=== PATIENT | female | born 1980 ===

== ENCOUNTER 2020-05-23 07:47 | Inpatient (IN) | payer OTHER, SELFPAY ==
[2020-05-23] MEDS ORDERED: TERBUTALINE 1 MG/1 ML INJ SUB-Q PRN (09:21)
[2020-05-23] MEDS ORDERED: AMPICILLIN/NS 2 GM/100 ML 2 GM/100 ML BAG IV ONE (09:21)
[2020-05-23] MEDS ORDERED: LIDOCAINE (2%) 20 MG/1 ML VIAL 20 ML MDV INFILTRATI NR (09:21)
[2020-05-23 09:42] LABS: Hemoglobin 13.2 gm/dl (10.1-14.3); Mean Corpuscular HGB Conc 35 % (30-34); Mean Corpuscular Volume 90 fl (79-97); Platelet Count 187 K/mm3 (140-440); Red Cell Distribution Width 17.8 % (13.2-15.2)
[2020-05-23] MEDS ORDERED: ePHEDrine SULFATE 50 MG/1 ML INJ IV PRN (10:00)
[2020-05-23] MEDS: fentaNYL 100 MCG/2 ML INJ IV PRN ×3 (10:00→12:02)
[2020-05-23] MEDS ORDERED: ACETAMINOPHEN 325 MG TAB PO PRN (10:00)
[2020-05-23] MEDS ORDERED: OXYTOCIN 20 UNIT/1000ML DRIP 20 UNITS/1,000 ML BAG IV SCH (10:00)
[2020-05-23] MEDS ORDERED: NalbUPHINE 10 MG/1 ML INJ IV PRN (10:00)
[2020-05-23] MEDS ORDERED: BUTORPHANOL 2 MG/1 ML INJ IV PRN ×2 (10:00)
[2020-05-23] MEDS ORDERED: OXYTOCIN DRIP 30 UNITS/500 ML BAG IV SCH (10:00)
[2020-05-23] MEDS ORDERED: LACTATED RINGERS 1,000 ML IV SCH (10:00)
[2020-05-23] MEDS ORDERED: ONDANSETRON 4 MG/2 ML INJ IV PRN (10:00)
--- NOTE | 2020-05-23 10:00 | History and Physical Report ---
History of Present Illness Date of examination: 05/23/20 Date of admission: 05/23/20 09:31 Chief complaint: Active labor History of present illness: 39yo, at unknown gestation, initiated care with [facility] per pt. Limited PN records are available. She presents to [facility] with regular painful ctxs. She reports +FM. Denies VB or LOF. Labs: O+, antibody negative; HIV negative; rubella immune; RPR negative; HBsAg negative; PAP negative; GC/Chlamydia negative; AFP negative; 1hr - gtt - 175; 3hr gtt - 83, 169, 195, 102; GBS unknown. Past History Past Medical History: no pertinent history Past Surgical History: other (Removed left fallopian tube; left leg surgery - 2012) Social history: , lives with family, full code. denies: smoking, alcohol abuse, prescription drug abuse, IV drug use - Obstetrical History : 5 Para: 1 Hx # Term Pregnancies: 1 Number of Pregnancies: 0 Spontaneous Abortions: 3 Induced : 0 Number of Living Children: 1 #1 Gender: Male year: 2,[birth year] Birthweight: 3.629 kg Method of Delivery: Vaginal Complications: none Medications and Allergies Allergies Allergy/AdvReac Type Severity Reaction Status Date / Time No Known Allergies Allergy Unverified 05/23/20 09:20 Active Meds: Active Medications Acetaminophen (Tylenol) 650 mg PO Q4H PRN PRN Reason: Pain, Mild (1-3) Butorphanol Tartrate (Stadol) 2 mg IV Q2H PRN PRN Reason: Pain , Severe (7-10) Ephedrine Sulfate (Ephedrine Sulfate) 10 mg IV Q2M PRN PRN Reason: Hypotension Fentanyl (Sublimaze) 100 mcg IV Q2H PRN PRN Reason: Pain,Severe (7-10) LABOR PAIN Oxytocin/Sodium Chloride (Pitocin/Ns 30 Unit/500ml) 30 units in 500 mls @ 2 mls/hr IV TITR THOMAS; Protocol Lactated Ringer's (Lactated Ringers) 1,000 mls @ 125 mls/hr IV DIRECT THOMAS Oxytocin/Sodium Chloride (Pitocin/Ns 20 Unit/1000ml Drip) 20 units in 1,000 mls @ 125 mls/hr IV DIRECT THOMAS Ampicillin Sodium (Ampicillin/Ns 1 Gm/50 Ml) 1 gm in 50 mls @ 100 mls/hr IV Q4HR [facility]; Protocol Ampicillin Sodium (Ampicillin/Ns 2 Gm/100 Ml) 2 gm in 100 mls @ 100 mls/hr IV ONCE ONE; Protocol Stop: 05/23/20 10:20 Lidocaine (Xylocaine 2%) 20 ml INFILTRATI ONCE NR Stop: 05/23/20 16:00 Mineral Oil (Mineral Oil) 30 ml PO QHS PRN PRN Reason: Constipation Nalbuphine HCl (Nalbuphine) 10 mg IV Q2H PRN PRN Reason: Pain, Moderate (4-6) Ondansetron HCl (Zofran) 4 mg IV Q8H PRN PRN Reason: Nausea And Vomiting Terbutaline Sulfate (Brethine) 0.25 mg SUB-Q ONCE PRN PRN Reason: Hyperstimulation/Hypertonicity Stop: 05/23/20 23:00 Review of Systems All systems: negative Genitourinary: contractions - Vital Signs Vital signs: Vital Signs Pulse BP 88 120/80 05/23/20 08:15 05/23/20 08:15 Temp Pulse Resp BP Pulse Ox 79 134/83 05/23/20 09:29 05/23/20 09:29 - Physical Exam Breasts: Positive: normal Cardiovascular: Regular rate Lungs: Positive: Normal air movement Abdomen: Positive: other (gravid) Uterus: Positive: enlarged Extremities: Positive: edema - Obstetrical FHR: category 1 Uterine Contraction Monitor Mode: External Cervical Dilatation: 7 Cervical Effacement Percentage: 70 station: -2 Uterine Contraction Frequency (min): 2-4 Uterine Contraction Pattern: Irregular Uterine Tone Measurement Phase: Resting Uterine Contraction Intensity: Moderate Results All other labs normal. Assessment and Plan - Patient Problems (1) Active labor Current Visit: Yes Status: Acute Plan to address problem: Admit to L & D Pain meds as desired per order Anticipate (2) AMA (advanced maternal age) primigravida 35+ Current Visit: Yes Status: Acute
[2020-05-23] MEDS ORDERED: METHYLERGONOVINE MALEATE 0.2 MG/ML VIAL IM ONE ×2 (11:58→14:44)
[2020-05-23] MEDS ORDERED: miSOPROStol 200 MCG TAB ONE (11:59)
[2020-05-23] MEDS ORDERED: miSOPROStol 200 MCG TAB PR ONE (12:05)
--- NOTE | 2020-05-23 12:37 | Procedure Note ---
OB Delivery Note - Delivery Date of Delivery: 05/23/20 (1147) Surgeon: GIOVANNA VILLATORO (CNM) Estimated blood loss: other (450mls) - Vaginal Delivery presentation: vertex, compound (left hand) Delivery position: OA (TUYET) Intrapartum events: other(please specify) (cord evulsion with manual placenta extraction) Delivery induction: none Delivery augmentation: rupture of membranes (05/23/2020 @ 0600) Delivery monitor: external FHT, external uterine Route of delivery: Delivery placenta: manual (1153), uterine exploration (Empiric Abts therapy ordered) Delivery cord: 3 umbilical vessels Episiotomy: none Delivery laceration: 1st degree (perineal, repaired) Delivery repair: vicryl (3.0 - SH) Anesthesia: local Delivery comments: of viable, crying male infant placed directly on maternal abdomen. Cord double clamped, cut by FOB after cessation of pulsation. Cord thick except at insertion site into placenta, cord was thin and wrapped tight onto itself. Upon application of hemostat, cord snapped and . Placenta was then manually removed, kayla, followed by uterine manual sweep. Methergine 0.2 mg IM and Cyctotec 1000mcg rectally given. Empiric ABT therapy ordered. Placenta sent to pathology. Uterus firm @ U-2. 1st degree perineal laceration, repaired. Mother and baby safe, stable and left in care of RN. - A at 1 minute: 8 at 5 minutes: 9 Gender: Male (Weight: 3466 gms (7lbs 10.2ozs) 17.5 inches)
[2020-05-23] MEDS ORDERED: AMPICILLIN/NS 2 GM/100 ML 2 GM/100 ML BAG IV SCH ×2 (13:00→15:00)
[2020-05-23] MEDS ORDERED: AMPICILLIN/NS 1 GM/50 ML 1 GM/50 ML BAG IV SCH (13:23)
[2020-05-23] MEDS ORDERED: WITCH HAZEL/ GLYCERIN PAD TP PRN (14:00)
[2020-05-23] MEDS ORDERED: LANOLIN/ZINC/DIMETHICONE (LANSINOH) 7 GM TP PRN (14:00)
[2020-05-23] MEDS ORDERED: diphenhydrAMINE 25 MG CAP PO PRN (14:00)
[2020-05-23] MEDS ORDERED: PROMETHAZINE 25 MG TAB PO PRN (14:00)
[2020-05-23] MEDS: IBUPROFEN 600 MG TAB PO SCH (14:47)
[2020-05-23] MEDS: oxyCODONE /ACETAMINOPHEN 5-325MG TAB PO PRN ×2 (19:10→23:33)
[2020-05-23] MEDS ORDERED: MINERAL OIL 30 ML ORAL LIQD PO PRN (22:00)
[2020-05-23] MEDS ORDERED: MAGNESIUM HYDROXIDE (MOM) ORAL LIQD UDC PO PRN (22:00)
[2020-05-24 01:11] LABS: Hematocrit 34.7 % (30.3-42.9); Hemoglobin 12.1 gm/dl (10.1-14.3)
[2020-05-24] MEDS: IBUPROFEN 600 MG TAB PO SCH ×3 (04:36→19:20)
[2020-05-24] MEDS: oxyCODONE /ACETAMINOPHEN 5-325MG TAB PO PRN ×2 (06:04→14:45)
--- NOTE | 2020-05-24 11:11 | Progress Note ---
Assessment and Plan A: day 1 S/P . P: Continue current management. Anticipate discharge home tomorrow if patient continues to do well. Subjective - Subjective Date of service: 05/24/20 Principal diagnosis: day 1 S/P Patient reports: appetite normal, voiding normally, pain well controlled, flatus, ambulating normally, no dizzy ambulation, no nauseated : doing well Objective - Vital Signs Latest vital signs: Vital Signs Temp Pulse Resp BP BP Pulse Ox 05/24/20 08:50 97.9 F 75 18 89/51 95 05/24/20 00:00 98.4 F 68 18 136/75 88 05/23/20 20:43 98.2 F 79 20 107/64 97 05/23/20 16:53 97.6 F 70 18 122/73 95 05/23/20 13:37 75 117/68 97 05/23/20 13:35 98.3 F 05/23/20 12:30 93 H 97 05/23/20 12:25 92 H 96 05/23/20 12:20 102 H 95 05/23/20 12:19 97 H 94 05/23/20 12:17 88 129/64 05/23/20 12:15 83 96 05/23/20 12:14 97 H 91 05/23/20 12:10 103 H 96 05/23/20 12:05 90 97 05/23/20 12:00 94 H 98 05/23/20 11:55 86 97 05/23/20 11:50 93 H 97 05/23/20 11:45 96 H 98 05/23/20 11:40 91 H 99 05/23/20 11:35 108 H 97 05/23/20 11:30 83 98 05/23/20 11:25 92 H 97 05/23/20 11:20 94 H 96 05/23/20 11:15 94 H 97 05/23/20 11:10 82 96 Intake and Output 05/23/20 05/24/20 05/24/20 23:59 07:59 15:59 Intake Total 120 240 240 Output Total 400 Balance -280 240 240 Intake: Oral 120 240 240 Output: Urine 400 Void 400 Other: Total, Intake Amount 120 240 240 Total, Output Amount 400 # Voids Void 1 1 - Exam Cardiovascular: Present: Regular rate, No murmurs Lungs: Present: Clear to auscultation Abdomen: Present: normal appearance, soft, normal bowel sounds. Absent: distention, tenderness, guarding, rigidity Uterus: Present: normal, firm, fundal height below umbilicus. Absent: boggin ess, tenderness Extremities: Present: normal. Absent: tenderness, edema
[2020-05-25] MEDS: oxyCODONE /ACETAMINOPHEN 5-325MG TAB PO PRN ×2 (00:24→09:32)
[2020-05-25] MEDS: IBUPROFEN 600 MG TAB PO SCH ×4 (00:25→22:19)
--- NOTE | 2020-05-25 10:51 | Progress Note ---
Assessment and Plan A: day 2 S/P . Dysuria and urinary frequency. P: Urinalysis and urine culture. Subjective - Subjective Date of service: 05/25/20 Principal diagnosis: day 2 S/P Interval history: Patient reports dysuria and mild suprapubic cramping this morning. States she has frequent urge to urinate. Denies fever, chills, malaise, or flank pain. Patient reports: appetite normal, flatus, bowel movement, ambulating normally, no dizzy ambulation, no nauseated : doing well Objective - Vital Signs Latest vital signs: Vital Signs Temp Pulse Resp BP Pulse Ox 05/25/20 08:14 98.6 F 84 18 109/54 95 05/25/20 00:00 98.2 F 74 19 102/65 95 05/24/20 16:10 98 F 80 18 95/56 95 Intake and Output 05/24/20 05/25/20 05/25/20 23:59 07:59 15:59 Intake Total 240 480 240 Balance 240 480 240 Intake: Oral 240 480 240 Other: Total, Intake Amount 240 240 240 # Voids Void 1 1 - Exam Cardiovascular: Present: Regular rate, No murmurs Lungs: Present: Clear to auscultation Abdomen: Present: normal appearance, soft, normal bowel sounds. Absent: distention, tenderness, guarding, rigidity Uterus: Present: normal, firm, fundal height below umbilicus. Absent: bogginess Extremities: Present: normal. Absent: tenderness, edema
[2020-05-25 13:34] LABS: Bilirubin,Urine NEG (Negative); Blood,Urine MOD (Negative); Color,Urine Straw (Yellow); Protein,Urine <15 mg/dL mg/dL (Negative); Urobilinogen,Urine < 2.0 mg/dL (<2.0)
[2020-05-25] MEDS: AMOXICILLIN/K CLAV 500/125MG TAB PO SCH ×2 (17:31→22:21)
[2020-05-26] MEDS: IBUPROFEN 600 MG TAB PO SCH ×3 (01:48→12:05)
--- NOTE | 2020-05-26 06:32 | Event Note ---
Date: 05/26/20 Patient with lower back pain; IV had been removed prior to her complaint of urinary symptoms yesterday. She is receiving Augmentin 500 mg po BID. Urine culture is pending. Patient is afebrile.
[2020-05-26] MEDS: AMOXICILLIN/K CLAV 500/125MG TAB PO SCH (12:06)
--- NOTE | 2020-05-26 12:47 | Progress Note ---
Assessment and Plan A: PP Day #3 P: Follow Routine Orders Depo Provera 150mg IM x 1 dose prior to discharge D/C home today RTO in 6 Weeks Subjective - Subjective Date of service: 05/26/20 Principal diagnosis: day 2 S/P Patient reports: appetite normal, voiding normally, pain well controlled, flatus, bowel movement, ambulating normally Kegley: doing well Objective - Vital Signs Latest vital signs: Vital Signs Temp Pulse Resp BP BP Pulse Ox 05/26/20 07:52 98.2 F 82 18 115/69 96 05/26/20 06:21 16 05/26/20 00:56 98.0 F 78 18 125/75 98 05/25/20 22:19 16 05/25/20 16:15 98.4 F 78 18 112/68 96 Intake and Output 05/25/20 05/26/20 05/26/20 22:59 06:59 14:59 Intake Total 600 360 720 Balance 600 360 720 Intake: Oral 240 360 Intake, Free Water 360 360 360 Other: Total, Intake Amount 240 120 # Voids Void 3 1 2 - Exam Breasts: Present: normal Cardiovascular: Present: Regular rate Lungs: Present: Clear to auscultation, Normal air movement Abdomen: Present: normal appearance, soft, normal bowel sounds Uterus: Present: normal, firm, fundal height below umbilicus Extremities: Present: normal
--- NOTE | 2020-05-26 12:49 | Discharge Summary ---
Providers - Providers Date of Admission: 05/23/20 09:31 Date of discharge: 05/26/20 Attending physician: TIA LARSON Primary care physician: WIDTH STRIPPER Hospitalization Reason for admission: active labor Delivery: Episiotomy: none Laceration: 2nd degree Other procedures: none complications: other (back pain) Discharge diagnosis: IUP at term delivered Williams baby: male Condition at discharge: Good Disposition: DC-01 TO HOME OR SELFCARE Plan - Provider Discharge Summary Activity: routine, no sex for 6 weeks, no heavy lifting 4 weeks, no strenuous exercise Diet: routine Instructions: routine Additional instructions: [] Smoking cessation referral if applicable(refer to patient education folder for contact #) [] Refer to [facility] Booklet Call your doctor immediately for: * Fever > 100.5 * Heavy vaginal bleeding ( >1 pad per hour) * Severe persistent headache * Shortness of breath * Reddened, hot, painful area to leg or breast * Drainage or odor from incision. * Keep incision clean and dry at all times and follow doctor's instructions regarding bathing/showering - Follow up plan Follow up: TIA LARSON MD [Staff Physician] - 6 Weeks
[2020-05-26] MEDS ORDERED: medroxyPROGESTERone ACETATE 150 MG/ML SYRINGE IM ONE (13:00)
[2020-05-26 13:15] VITALS: BP 117/72
[2020-05-26] MEDS: oxyCODONE /ACETAMINOPHEN 5-325MG TAB PO PRN (14:00)
== END 2020-05-26 14:45 | disposition home or self-care (01) | DRG 807 ==
LOC: TRG 07:47 → APU 07:51 → LD 09:19 → TRG 09:30 → LD 09:31 → OB 14:04
PROVIDERS: ADMIT Obstetrics & Gynecology; ATTEND Obstetrics & Gynecology
PROC: 10E0XZZ Delivery of Products of Conception, External Approach (ICD-10-PCS; principal; 2020-05-23)
PROC: 0HQ9XZZ Repair Perineum Skin, External Approach (ICD-10-PCS; 2020-05-23)
PROC: 3E0P7VZ Introduction of Hormone into Female Reproductive, Via Natural or Artificial Opening (ICD-10-PCS; 2020-05-23)
DX: O32.6XX0 Maternal care for compound presentation, not applicable or unspecified (principal); Z37.0 Single live birth; O70.0 First degree perineal laceration during delivery; O09.519 Supervision of elderly primigravida, unspecified trimester; Z3A.00 Weeks of gestation of pregnancy not specified; Z20.828 Contact with and (suspected) exposure to other viral communicable diseases; O90.89 Other complications of the puerperium, not elsewhere classified; R30.0 Dysuria; R35.0 Frequency of micturition; M54.5 Low back pain
CPT/HCPCS: 36415; 81001; 85014; 85018; 85027; 86592; 86850; 86900; 86901; 87086; 88307; G0378; A6250; J0290; J1050; J2210; J2590; J3010; J7120; U0003-CS

== ENCOUNTER 2020-10-02 14:48 | Emergency (ER) | payer MEDICAID ==
[2020-10-02 14:56] VITALS: BP 108/73
[2020-10-02] MEDS ORDERED: ONDANSETRON 4 MG ODT TAB PO ONE (15:19)
[2020-10-02] MEDS ORDERED: KETOROLAC 10 MG TAB PO ONE (15:19)
[2020-10-02] MEDS ORDERED: oxyCODONE 5 MG TAB PO ONE (15:19)
[2020-10-02 15:32] LABS: HCG Qualitative,Urine Negative (Negative)
[2020-10-02 15:35] LABS: Bilirubin,Urine NEG (Negative); Blood,Urine NEG (Negative); Color,Urine Yellow (Yellow); Mucus,Urine FEW /HPF
--- NOTE | 2020-10-02 15:39 | Emergency Department Report ---
ED Female HPI - General Chief complaint: Urogenital-Female Stated complaint: LEFT SIDE PAIN Time Seen by Provider: 10/02/20 14:57 Source: patient Mode of arrival: Ambulatory Limitations: Language Barrier - History of Present Illness Initial comments: Bahamian interpretation by lauro Pack Patient is a 39-year-old female presents emergency room complaints of left flank pain that began yesterday. She has associated urinary frequency and dysuria. She denies any abdominal pain, nausea, vomiting, diarrhea, fever, abnormal vaginal discharge, blood in the urine. No past medical history. No allergies to medications. She had a vaginal delivery 4 months ago. She had a Pap smear performed by her [facility] 2 days ago. - Related Data Previous Rx's Medication Instructions Recorded Last Taken Type Ketorolac [Toradol] 10 mg PO Q6H PRN #10 tablet 10/02/20 Unknown Rx Phenazopyridine [Pyridium] 100 mg PO TID #9 tab 10/02/20 Unknown Rx Tamsulosin [Flomax] 0.4 mg PO QDAY #7 cap 10/02/20 Unknown Rx traMADoL [Ultram 50 MG tab] 50 mg PO Q6HR PRN #12 tablet 10/02/20 Unknown Rx Allergies Allergy/AdvReac Type Severity Reaction Status Date / Time No Known Allergies Allergy Verified 10/02/20 14:52 ED Review of Systems ROS: Stated complaint: LEFT SIDE PAIN Other details as noted in HPI Comment: All other systems reviewed and negative ED Past Medical Hx - Past Medical History Hx Hypertension: No Hx Congestive Heart Failure: No Hx Diabetes: No Hx Deep Vein Thrombosis: No Hx Renal Disease: No Hx Sickle Cell Disease: No Hx Seizures: No Hx Asthma: No Hx COPD: No Hx HIV: No - Social History Smoking Status: Never Smoker - Medications Home Medications: Home Medications Medication Instructions Recorded Confirmed Last Taken Type Ketorolac [Toradol] 10 mg PO Q6H PRN #10 tablet 10/02/20 Unknown Rx Phenazopyridine [Pyridium] 100 mg PO TID #9 tab 10/02/20 Unknown Rx Tamsulosin [Flomax] 0.4 mg PO QDAY #7 cap 10/02/20 Unknown Rx traMADoL [Ultram 50 MG tab] 50 mg PO Q6HR PRN #12 tablet 10/02/20 Unknown Rx ED Physical Exam - General Limitations: No Limitations General appearance: alert, in no apparent distress - Head Head exam: Present: atraumatic, normocephalic - Eye Eye exam: Present: normal appearance - ENT ENT exam: Present: mucous membranes moist - Respiratory Respiratory exam: Present: normal lung sounds bilaterally. Absent: respiratory distress, wheezes, rales, rhonchi, stridor, chest wall tenderness, accessory muscle use, decreased breath sounds, prolonged expiratory - Cardiovascular Cardiovascular Exam: Present: regular rate, normal rhythm, normal heart sounds. Absent: systolic murmur, diastolic murmur, rubs, gallop - GI/Abdominal GI/Abdominal exam: Present: soft, normal bowel sounds. Absent: distended, tenderness, guarding, rebound, rigid - Back Exam Back exam: Present: CVA tenderness (L). Absent: CVA tenderness (R) - Neurological Exam Neurological exam: Present: alert, oriented X3 - Psychiatric Psychiatric exam: Present: normal affect, normal mood - Skin Skin exam: Present: warm, dry, intact ED Course Vital Signs 10/02/20 10/02/20 14:54 15:50 Temperature 98.0 F Pulse Rate 85 Respiratory 18 18 Rate Blood Pressure 108/73 O2 Sat by Pulse 96 Oximetry ED Medical Decision Making - Lab Data Result diagrams: 10/02/20 16:10 10/02/20 16:10 - Radiology Data Radiology results: report reviewed Ordering Physician: KRYSTAL BENITEZ Date of Service: 10/02/20 Procedure(s): CT abdomen pelvis wo con Accession Number(s): [id number] cc: KRYSTAL BENITEZ CT abdomen pelvis wo con INDICATION: left flank pain. TECHNIQUE: All CT scans at this location are performed using the following dose modulation technique: Automated exposure control. CONTRAST: None. COMPARISON: None available. CT ABDOMEN: Evaluation of the parenchymal organs demonstrates a clustering of stones medially at the left kidney measuring 1.2 cm. There is overlying cortical scarring. The remaining parenchymal organs are unremarkable negative for abdominal mass, fluid or inflammation. The bowel isn't dilated or thickened. The gallbladder contains calcified stones but appears noninflamed. CT PELVIS: Negative for distal ureteral stone, pelvic fluid collection or inflammation. A fat- containing umbilical hernia is small. The appendix is normal. IMPRESSION: 1. Clustered stones within the medial left kidney with overlying scarring. These are possibly within a calyceal diverticulum. 2. Calcified gallstone. 3. Negative for obstructing ureteral stone. Signer Name: Les Polanco MD Signed: 10/02/2020 4:15 PM Workstation Name: [id number] Transcribed By: RUTHANN Dictated By: Les Polanco MD Electronically Authenticated By: Les Polanco MD Signed Date/Time: 10/02/201614 DD/ 10 TD/TT: - Medical Decision Making Bahamian interpretation by lauro Pack Patient is a 39-year-old female presents emergency room complaints of left flank pain that began yesterday. She has associated urinary frequency and dysuria. She denies any abdominal pain, nausea, vomiting, diarrhea, fever, abnormal vaginal discharge, blood in the urine. No past medical history. No allergies to medications. She had a vaginal delivery 4 months ago. She had a Pap smear performed by her [facility] [employer] 2 days ago. Vitals are normal. On exam patient has left CVA tenderness. UA is within normal limits. CT abdomen pelvis w/o contrast 1. Clustered stones within the medial left kidney with overlying scarring. These are possibly within a calyceal diverticulum. 2. Calcified gallstone. 3. Negative for obstructing ureteral stone. labs are stable. Discussed all results with patient answered questions. Patient given medications while in the ED as she did not drive and symptoms improved and she was feeling much better and ready to go home. Patient given prescription for Flomax, Pyridium, tramadol, Toradol. Advised patient to please take medication as prescribed. Increase water intake. Medication may turn your urine orange but this is normal. Do not drive or operate heavy machinery while taking severe pain medication. Follow-up with a primary care doctor. Follow-up with urologist. Return to emergency room for new or worsening symptoms. Critical care attestation.: If time is entered above; I have spent that time in minutes in the direct care of this critically ill patient, excluding procedure time. ED Disposition Clinical Impression: Left flank pain, Dysuria, Nephrolithiasis Disposition: - TO HOME OR SELFCARE Is pt being admited?: No Does the pt Need Aspirin: No Condition: Stable Instructions: Flank Pain, Adult, Kidney Stones Additional Instructions: please take medication as prescribed. Increase water intake. Medication may turn your urine orange but this is normal. Do not drive or operate heavy machinery while taking severe pain medication. Follow-up with a primary care doctor. Follow-up with urologist. Return to emergency room for new or worsening symptoms. Prescriptions: Tamsulosin [Flomax] 0.4 mg PO QDAY #7 cap Phenazopyridine [Pyridium] 100 mg PO TID #9 tab Ketorolac [Toradol] 10 mg PO Q6H PRN #10 tablet PRN Reason: Pain, Moderate (4-6) traMADoL [Ultram 50 MG tab] 50 mg PO Q6HR PRN #12 tablet PRN Reason: Pain , Severe (7-10) Referrals: APOLONIA AUSTIN MD [Staff Physician] - 2-3 Days [facility] [Provider Group] - 2-3 Days DAGOBERTO SOLARES MD [Staff Physician] - 2-3 Days Time of Disposition: 16:56 Print Language: MARSHALLESE
--- NOTE | 2020-10-02 16:20 | Cat Scan Report ---
CT abdomen pelvis wo con INDICATION: left flank pain. TECHNIQUE: All CT scans at this location are performed using the following dose modulation technique: Automated exposure control. CONTRAST: None. COMPARISON: None available. CT ABDOMEN: Evaluation of the parenchymal organs demonstrates a clustering of stones medially at the left kidney measuring 1.2 cm. There is overlying cortical scarring. The remaining parenchymal organs are unremarkable negative for abdominal mass, fluid or inflammation. The bowel isn't dilated or thick ened. The gallbladder contains calcified stones but appears noninflamed. CT PELVIS: Negative for distal ureteral stone, pelvic fluid collection or inflammation. A fat-contain ing umbilical hernia is small. The appendix is normal. IMPRESSION: 1. Clustered stones within the medial left kidney with overlying scarring. These are possibly within a calyceal diverticulum. 2. Calcified gallstone. 3. Negative for obstructing ureteral stone. Signer Name: Les Polanco MD Signed: 10/02/2020 4:15 PM Workstation Name: [id number]
[2020-10-02 16:26] LABS: Basophils % (Auto) 0.4 % (0.0-1.8); Eosinophils % (Auto) 0.5 % (0.0-4.3); Hematocrit 39.1 % (30.3-42.9); Hemoglobin 13.9 gm/dl (10.1-14.3); Lymphocytes # (Auto) 0.8 K/mm3 (1.2-5.4); Lymphocytes % (Auto) 9.7 % (13.4-35.0); Mean Corpuscular HGB Conc 36 % (30-34); Mean Corpuscular Volume 88 fl (79-97); Monocytes # (Auto) 0.3 K/mm3 (0.0-0.8); Monocytes % (Auto) 3.5 % (0.0-7.3); Platelet Count 234 K/mm3 (140-440); Red Blood Count 4.46 M/mm3 (3.65-5.03); Red Cell Distribution Width 14.3 % (13.2-15.2)
[2020-10-02 16:42] LABS: Blood Urea Nitrogen 16 mg/dL (7-17); Calcium 8.9 mg/dL (8.4-10.2); Hemolysis Index 2
[2020-10-02 16:54] LABS: BUN/Creatinine Ratio 23
== END 2020-10-02 18:37 | disposition home or self-care (01) ==
LOC: ED 14:48
DX: N20.0 Calculus of kidney (principal); R30.0 Dysuria; R10.9 Unspecified abdominal pain; Z79.899 Other long term (current) drug therapy
CPT/HCPCS: 36415; 74176; 80048; 81001; 81025; 85025; Q0162